=== PATIENT | male | born 1960 | race Caucasian/White ===

== ENCOUNTER 2020-06-10 23:57 | Emergency (ER) | payer OTHER ==
[2020-06-11] MEDS ORDERED: Ketorolac Tromethamine 30 MG/ML VIAL ONE (00:35)
[2020-06-11] MEDS ORDERED: Acetaminophen 500 MG TAB ONE (00:35)
== END 2020-06-11 01:02 | disposition home or self-care (01) ==
LOC: ERS 23:57
DX: M54.2 Cervicalgia (principal); M62.838 Other muscle spasm
CPT/HCPCS: J1885

== ENCOUNTER 2020-06-12 00:34 | Emergency (ER) | payer OTHER ==
--- NOTE | 2020-06-12 07:43 | CT ---
PRELIMINARY REPORT/[facility]/EMERGENCY AFTER HOURS PROCEDURE: EXAM: CT Cervical Spine Without Intravenous Contrast. CLINICAL HISTORY: 59M presenting to ED for evaluation of upper back and neck pain after doing push-up s 2 days ago. Patient was evaluated in the emergency department last night and diagnosed with muscle strain, he reports he took 1 dose of Tylenol today and that his pain is not improved. TECHNIQUE: Axial computed tomography images of the cervical spine without intravenous contrast. Sagit beba and coronal reformations performed. DLP equals 449.13. COMPARISON: None provided. FINDINGS: BONES: No acute fracture or subluxation. Vertebral body heights are maintained. DISCS / DEGENERATIVE CHANGES: Multilevel disc osteophyte complexes seen from C4-C7 with mild to moder ate central canal stenosis. SOFT TISSUES: No prevertebral soft tissue swelling. No apical pneumothorax. IMPRESSION: No acute cervical spine abnormality. Degenerative changes from C4-C7. If symptoms persist or worsen, MRI could be considered as warranted. ELECTRONICALLY SIGNED BY: Carmelita Barnett MD Jun 12, 2020 1:00:18 AM FEED CRUSHER OPERATOR FINAL REPORT CT CERVICAL SPINE WITHOUT CONTRAST: I agree with the preliminary report given by Dr. Carmelita Barnett of [facility]. POS: [facility]
== END 2020-06-12 01:52 | disposition home or self-care (01) ==
LOC: ERS 00:34
DX: M62.838 Other muscle spasm (principal)
CPT/HCPCS: 72125; J1885

== ENCOUNTER → 2020-06-12 | Emergency (ER) | payer OTHER | LOC: ERS 00:32 | DX: M62.838 Other muscle spasm (principal); I10 Essential (primary) hypertension | CPT/HCPCS: 96372; 99283 ==